=== PATIENT | male | born 1975 | race Caucasian/White ===

== ENCOUNTER 2017-09-28 15:06 | Emergency (ER) | payer SELFPAY ==
[~2017-09-28] VITALS: Ht 185.4 cm; Wt 91.0 kg
[~2017-09-28 15:06] MED LIST: ADDE20 PO; DIAZ10 PO; DULE100A INH; HYDR-3535 PO; PROZ20CA11 PO; VENTAER INH
[2017-09-28 15:09] VITALS: BP 108/79; PULSE 74; RESP 18; TEMP 97.9; O2SAT 97
[2017-09-28] MEDS ORDERED: AZIT250T3 PO (16:22)
--- NOTE | 2017-09-28 16:23 | PD ---
HPI Chief Complaint: ENT Complaint Time Seen by Provider: 16:00 Travel History International Travel<30 days: No Contact w/Intl Traveler<30days: No Traveled to known affect area: No History of Present Illness HPI 42-year-old male here with productive cough and fever 1 week. He reports he is caring for his father with pneumonia and is concerned he now has pneumonia. He reports yellow sputum. Symptom severity is moderate. No aggravating or alleviating factors. PFSH Past Medical History Asthma: Yes Anxiety: Yes Depression: Yes Cancer: No Cardiovascular Problems: No Diabetes: No Diminished Hearing: No Endocrine: No Gastrointestinal Disorders: Yes (GERD) GERD: Yes Genitourinary: No Hepatitis: No Hiatal Hernia: No Hypertension: No Immune Disorder: No Implanted Vascular Access Dvce: No Kidney Stones: Yes Medical other: Yes (BACK INJURY) Musculoskeletal: Yes (OSTEOMYELITIS ) Neurologic: No Psychiatric: Yes Reproductive: No Respiratory: Yes (ASTHMA) Integumentary: Yes Migraines: Yes Thyroid Disease: No Influenza Vaccination: Yes ?: Not Past Surgical History Abdominal Surgery: Yes (LEFT HERNIA REPAIR) Body Medical Devices: CEMENT SPACER LEFT FOREARM Cardiac Surgery: Yes (LEFT ARM I & D BONE SCRAPPING) Pacemaker: No Other Surgery: Yes (INFECTION IN BONE) Social History Alcohol Use: No Tobacco Use: Yes (quit two years ago , ten year hx) Substance Use: No Allergies-Medications (Allergen,Severity, Reaction): Coded Allergies: Fish Containing Products (Unverified Allergy, Severe, ANAPHYLAXIS, 09/28/17 ) *MDRO Multi-Drug Resistant Organism (Verified Adverse Reaction, Unknown, ) 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 Review of Systems Except as stated in HPI: all other systems reviewed are Neg General / Constitutional: Positive: Fever Eyes: No: Visual changes HENT: No: Headaches Cardiovascular: No: Chest Pain or Discomfort Respiratory: Positive: Cough Gastrointestinal: No: Abdominal Pain Genitourinary: No: Dysuria Physical Exam Narrative GENERAL: Alert well-appearing 42-year-old male SKIN: Warm and dry. HEAD: Normocephalic. EYES: No injection or drainage. NECK: Supple CARDIOVASCULAR: Regular rate and rhythm RESPIRATORY: Breath sounds equal bilaterally. No accessory muscle use. Rhonchorous cough GASTROINTESTINAL: Abdomen soft, non-tender, nondistended. MUSCULOSKELETAL: No cyanosis, or edema. BACK: Nontender without obvious deformity. No CVA tenderness. Data Data Last Documented VS Vital Signs Date Time Temp Pulse Resp B/P (MAP) Pulse Ox O2 Delivery O2 Flow Rate FiO2 09/28/17 15:09 97.9 74 18 108/79 (89) 97 MDM Medical Decision Making Medical Screen Exam Complete: Yes Emergency Medical Condition: Yes Differential Diagnosis Bronchitis, pneumonia, influenza Narrative Course 42 Y/O M with bronchitis. He is well-appearing. Diagnosis Primary Impression: Bronchitis Referrals: Primary Care Physician Scripts Azithromycin (Azithromycin) 250 Mg Tab 250 MG PO DIRECTED for Infection, #6 TAB 0 Refills Take 2 tabs (500 mg) on day 1 then 1 tab daily x 4 days. Prov: Mirlande Mcnair 09/28/17 Disposition: 01 DISCHARGE HOME Condition: Stable Mirlande Mcnair Sep 28, 2017 16:23
== END 2017-09-28 16:37 | disposition home or self-care (01) ==
LOC: PHEFT 15:06
DX: J40 Bronchitis, not specified as acute or chronic (principal); R50.9 Fever, unspecified; K21.9 Gastro-esophageal reflux disease without esophagitis; Z87.09 Personal history of other diseases of the respiratory system; Z86.59 Personal history of other mental and behavioral disorders; Z87.39 Personal history of other diseases of the musculoskeletal system and connective tissue; Z87.2 Personal history of diseases of the skin and subcutaneous tissue; Z86.69 Personal history of other diseases of the nervous system and sense organs
CPT/HCPCS: 99283